=== PATIENT | female | born 1945 | race Caucasian/White ===

== ENCOUNTER 2016-05-05 18:30 | Emergency (ER) | payer MEDICARE ==
[~2016-05-05] VITALS: Ht 167.6 cm; Wt 89.0 kg
[2016-05-05] MEDS ORDERED: SODIUM CHLORIDE FLUSH 10ML SYR IVF ONE (19:00)
[2016-05-05] MEDS ORDERED: ONDANSETRON 2MG/ML, 2ML IVPush ONE (19:00)
[2016-05-05] MEDS ORDERED: SODIUM CHLORIDE 0.9% 1,000ML IVBOLUS ONE (19:00)
[2016-05-05] MEDS ORDERED: ONDANSETRON 2MG/ML, 2ML ONE (19:24)
[2016-05-05 19:27] LABS: HEMOGLOBIN 12.9 g/dL (11.7-16.4)
[2016-05-05] MEDS ORDERED: HYDROmorphone 1 MG/ML, 1ML IVPush PRN (19:30)
[2016-05-05] MEDS ORDERED: OXYC-229 PO (19:34)
[2016-05-05] MEDS ORDERED: LOSA25TA5 PO (19:34)
[2016-05-05] MEDS ORDERED: METF10002 PO (19:34)
[2016-05-05] MEDS ORDERED: PANT20TA3 PO (19:34)
[2016-05-05 19:37] LABS: BLOOD UREA NITROGEN 22 mg/dL (7-18)
[2016-05-05 19:40] LABS: ASPARTATE AMINO TRANSFERASE 25 U/L (15-37)
[2016-05-05] MEDS ORDERED: HYDROmorphone 1 MG/ML, 1ML ONE ×2 (20:38→21:03)
[2016-05-05 21:00] VITALS: BP 125/80
== END 2016-05-05 22:07 | disposition home or self-care (01) ==
LOC: ED 22:00
DX: R11.2 Nausea with vomiting, unspecified (principal); N28.9 Disorder of kidney and ureter, unspecified; M54.42 Lumbago with sciatica, left side; G89.29 Other chronic pain; G62.9 Polyneuropathy, unspecified
CPT/HCPCS: 36415; 80053; 81003; 83690; 85025; 96374; 96375; 99284; J1170; J2405; J7030

== ENCOUNTER 2017-10-08 09:30 | Observation (INO) | payer MEDICARE ==
[~2017-10-08] VITALS: Ht 162.6 cm; Wt 73.6 kg
[~2017-10-08 09:30] MED LIST: LOSA25TA6 PO; METF10002 PO; OXYC-307 PO; PANT20TA3 PO
[2017-10-08] MEDS ORDERED: SODIUM CHLORIDE FLUSH 10ML SYR IVF ONE (10:00)
[2017-10-08 10:27] LABS: BASOPHILS # (AUTO) 0.05 x10^3/uL (0-0.1); BASOPHILS % (AUTO) 1 % (0-1); EOSINOPHILS # (AUTO) 0.12 x10^3/uL (0-0.4); EOSINOPHILS % (AUTO) 1 % (1-7); LYMPHOCYTES # (AUTO) 2.98 x10^3/uL (1-3.4); LYMPHOCYTES % (AUTO) 28 % (22-44); MD NO; MEAN CORPUSCULAR HEMOGLOBIN 30.8 pg (27.0-34.8); MEAN CORPUSCULAR HGB CONC 33.9 g/dL (32.4-35.8); MONOCYTES # (AUTO) 1.03 x10^3/uL (0.2-0.8); MONOCYTES % (AUTO) 10 % (2-9); NEUTROPHILS # (AUTO) 6.39 x10^3/uL (1.8-6.8); NEUTROPHILS % (AUTO) 61 % (42-75); PLATELET COUNT 304 x10^3/uL (130-400); RED CELL DISTRIBUTION WIDTH 14.1 % (9.6-15.2)
[2017-10-08 10:40] LABS: ALANINE AMINOTRANSFERASE 24 U/L (12-78); ALBUMIN 4.3 g/dL (3.4-5.0); ANION GAP 11 mmol/L (5-15); CALCIUM 9.8 mg/dL (8.5-10.1); CHLORIDE 102 mmol/L (98-107); CREATININE 1.39 mg/dL (0.55-1.02)
[2017-10-08 10:44] LABS: ALKALINE PHOSPHATASE 84 U/L (45-117); BILIRUBIN,TOTAL 0.5 mg/dL (0.2-1.0); TOTAL PROTEIN 7.5 g/dL (6.4-8.2); TROPONIN I < 0.015 ng/mL (0.000-0.045)
[2017-10-08] MEDS ORDERED: L. R1CAP6 PO (10:58)
[2017-10-08] MEDS ORDERED: HYDR25TA6 PO (10:58)
[2017-10-08] MEDS ORDERED: CELE200C PO (10:58)
[2017-10-08] MEDS ORDERED: PRED10TA PO (10:58)
[2017-10-08] MEDS ORDERED: DULO30CA2 PO (10:58)
[2017-10-08] MEDS ORDERED: ZOLP-413 PO (10:58)
[2017-10-08] MEDS ORDERED: ROSU20TA PO (10:58)
[2017-10-08] MEDS ORDERED: PANT40TA5 PO (10:58)
[2017-10-08] MEDS ORDERED: LOSA50TA7 PO (10:58)
[2017-10-08 11:34] LABS: MICROSCOPIC NOT IND
[2017-10-08 11:37] LABS: CULTURE INDICATED? NO
[2017-10-08] MEDS ORDERED: SODIUM CHLORIDE 0.9% 1,000 ML IV SCH (13:49)
[2017-10-08] MEDS ORDERED: POLYETHYLENE GLYCOL 17 GM PACKET PO PRN (14:00)
[2017-10-08] MEDS ORDERED: ACETAMINOPHEN 325 MG TABLET PO PRN (14:00)
[2017-10-08] MEDS ORDERED: DEXTROSE 50%, 50ML SYRINGE IVPush PRN (14:00)
[2017-10-08] MEDS ORDERED: GLUCAGON 1 MG IM PRN (14:00)
[2017-10-08] MEDS ORDERED: hydrALAzine 20 MG/ML, 1ML IVPush PRN (14:00)
[2017-10-08] MEDS ORDERED: ONDANSETRON ODT 4 MG PO PRN (14:00)
[2017-10-08] MEDS ORDERED: BISACODYL 10 MG SUPP PR PRN (14:00)
[2017-10-08] MEDS ORDERED: DOCUSATE 100 MG CAPSULE PO PRN (14:00)
[2017-10-08] MEDS ORDERED: DEXTROSE 4 GM TAB.CHEW PO PRN (14:00)
[2017-10-08 14:07] VITALS: BP 132/84
[2017-10-08 14:37] LABS: INTERNATIONAL NORMALIZED RATIO 0.97 (0.93-1.1)
[2017-10-08 14:49] LABS: THYROID STIMULATING HORMONE 0.925 mIU/L (0.358-3.740)
[2017-10-08 15:02] LABS: HEMOGLOBIN A1C 6.7 % (4.2-6.3)
[2017-10-08 15:27] LABS: CREATINE KINASE, TOTAL 40 U/L (26-192)
[2017-10-08] MEDS ORDERED: PROCHLORPERAZINE 5 MG/ML, 2ML IV PRN (15:30)
[2017-10-08] MEDS ORDERED: PANTOPRAZOLE 40 MG IV IVPush SCH (15:30)
[2017-10-08] MEDS ORDERED: INSULIN LISPRO 100 UNITS/ML, PEN SQ-INSULIN SCH (16:00)
[2017-10-08] MEDS ORDERED: ATORVASTATIN 40 MG TABLET PO SCH (21:00)
[2017-10-08] MEDS ORDERED: SODIUM CHLORIDE FLUSH 10ML SYR IVF SCH (21:00)
== END 2017-10-08 16:28 | disposition left against medical advice (07) ==
LOC: ED 11:50 → INTOOBSV 12:18 → EDIP 12:18 → 4EST 13:57
PROVIDERS: ADMIT Hospitalist; ATTEND Hospitalist
DX: R41.82 Altered mental status, unspecified (principal); N17.9 Acute kidney failure, unspecified; R11.2 Nausea with vomiting, unspecified; E11.22 Type 2 diabetes mellitus with diabetic chronic kidney disease; I12.9 Hypertensive chronic kidney disease with stage 1 through stage 4 chronic kidney disease, or unspecified chronic kidney disease; G89.29 Other chronic pain; M54.9 Dorsalgia, unspecified; N18.9 Chronic kidney disease, unspecified; Z53.21 Procedure and treatment not carried out due to patient leaving prior to being seen by health care provider; Z86.61 Personal history of infections of the central nervous system; Z79.899 Other long term (current) drug therapy
CPT/HCPCS: 36415; 70450; 71045; 74018; 80053; 80307; 81003; 82140; 82550; 82607; 83036; 83605; 83690; 84439; 84443; 84484; 85025; 85610; 87040; 92523; 93005; 99285; G0378